=== PATIENT | male | born 1945 | race Caucasian/White ===

== ENCOUNTER → 2024-08-27 10:20 | Outpatient (CLI) | payer MEDICARE, OTHER, SELFPAY ==
--- NOTE | 2024-08-27 10:21 | DI.RAD.S_ITS ---
PROCEDURE: XR RIBS LT MIN 3V W [id number] INDICATIONS: Left-sided rib pain TECHNIQUE: 2 views of the ribs were acquired, along with a single view chest. COMPARISON: None. FINDINGS: Surgical changes and devices: Cardiac pacemaker is seen with pulse generator in the left chest. Left atrial appendage occlusion device is present. Bones and chest wall: Mildly displaced posterior left 3rd rib fracture, posterolateral left 6th rib fracture, and anterior 8th rib fracture No suspicious bony lesions. Overlying soft tissues appear unremarkable. Lungs and pleura: No pleural effusions or pneumothorax. Lungs appear clear. Mediastinum: Mediastinal contours appear normal. Heart size is normal. IMPRESSION: Mildly displaced left-sided rib fractures involving the left 3rd, 6th, and 8th ribs. No pneumothorax. Approved by: Ryland Gamboa M.D. on 08/27/2024 at 9:45
== END ==
PROVIDERS: Referring Provider Registered Nurse; Visit Provider Registered Nurse
DX: S22.42XA Multiple fractures of ribs, left side, initial encounter for closed fracture (principal); R07.81 Pleurodynia
CPT/HCPCS: 71101